=== PATIENT | male | born 1945 | race Caucasian/White ===

== ENCOUNTER 2020-10-20 11:11 | Emergency (ER) | payer BC, MEDICAID ==
[~2020-10-20] VITALS: Ht 177.8 cm; Wt 70.8 kg
--- NOTE | 2020-10-20 11:28 | NUR ---
TIFFANIE FONTAINE "Son called from Hotel they were staying at [facility].Given 2mg Narcan, admits on taking a tiny bit of fentanyl. On room air, breathing evenly and unlabored. Connected to the monitor and pulse ox. Kept comfortable, will continue to monitor accordingly.
[2020-10-20 11:45] LABS: BASOPHILS # (AUTO) 0.1 K/uL (0.0-0.2); BASOPHILS % (AUTO) 0.9 % (0.0-2.0); EOSINOPHILS % (AUTO) 2.8 % (0.0-6.0); HEMATOCRIT 43 % (39-51); HEMOGLOBIN 14.4 g/dL (13.5-17.5); LYMPHOCYTES # (AUTO) 2.2 K/uL (0.8-4.8); LYMPHOCYTES % (AUTO) 25.5 % (20.0-44.0); MEAN CORPUSCULAR HGB CONC 34 g/dl (31.0-36.0); MEAN CORPUSCULAR VOLUME 83 fL (80-96); MONOCYTES # (AUTO) 0.4 K/uL (0.1-1.30); MONOCYTES % (AUTO) 5.1 % (2.0-12.0); NEUTROPHILS # (AUTO) 5.6 K/uL (1.8-8.9); NEUTROPHILS % (AUTO) 65.7 % (43.0-81.0); PLATELET COUNT (AUTO) 533 K/uL (150-450); RED BLOOD CELL COUNT(AUTO) 5.12 MIL/uL (4.5-6.0); WHITE BLOOD COUNT (AUTO) 8.6 K/uL (4.3-11.0)
[2020-10-20 11:53] LABS: CALCIUM, SERUM 9.9 mg/dL (8.5-10.1); CARBON DIOXIDE 28 mmol/L (21-32); CHLORIDE 102 mmol/L (98-107); CREATININE 1.2 mg/dL (0.6-1.3); GLUCOSE 108 mg/dL (74-106); POTASSIUM 3.7 mmol/L (3.5-5.1); SODIUM SERUM 138 mmol/L (136-145); UREA NITROGEN, BLOOD 16 mg/dL (7-18)
[2020-10-20 12:12] LABS: ALANINE AMINOTRANSFERASE 13 U/L (12-78); ALBUMIN 3.5 g/dL (3.4-5.0); ALCOHOL, BLOOD < 3 mg/dL (0-0); ALKALINE PHOSPHATASE 73 U/L (46-116); ASPARTATE AMINOTRANSFERASE 34 U/L (15-37); BILIRUBIN,DIRECT 0.2 mg/dL (0.0-0.2); BILIRUBIN,TOTAL 0.8 mg/dL (0.2-1.0); TOTAL PROTEIN, SERUM 8.7 g/dL (6.4-8.2)
[2020-10-20 12:13] LABS: ACETAMINOPHEN < 2 ug/ml (10-30)
--- NOTE | 2020-10-20 12:34 | NUR ---
urine collected and sent to lab.
[2020-10-20 13:05] LABS: BILIRUBIN,URINE Negative (NEGATIVE); COLOR,URINE YELLOW (YELLOW); LEUKOCYTE ESTERASE ,URINE Negative (NEGATIVE); NITRITE, URINE Negative (NEGATIVE); PH,URINE 6.5 (5.0-8.0); PROTEIN,URINE 30 mg/dl (NEGATIVE); UGLUCOSE Negative (NEGATIVE); UROBILINOGEN,URINE 0.2 EU/dL (0.2)
[2020-10-20 13:11] LABS: BACTERIA,URINE Rare /HPF (None Seen); SQUAMOUS EPITHELIAL CELL,UR Few /HPF (None Seen); WBC,URINE NONE SEEN /HPF (0-3)
[2020-10-20] MEDS ORDERED: NALO4SPR NS (15:32)
--- NOTE | 2020-10-20 15:46 | NUR ---
called son for [employer] sewing [employer] and unable to leave a message due to mailbox full. Will try to call back in a bit.
--- NOTE | 2020-10-20 16:00 | NUR ---
son (hal) called [employer] for transportation to [place] pack[place] his dad going to [facility] 6. 5 mins ETA
--- NOTE | 2020-10-20 16:17 | NUR ---
Patient discharged to back to [place] [id number] where he stay with his son (hal) in stable condition. Written and verbal after care instructions given. Patient verbalizes understanding of instruction. Called hal and informed that his dad is on his way back and aware.
[2020-10-20 16:19] VITALS: BP 145/81
== END 2020-10-20 16:19 | disposition home or self-care (01) ==
LOC: ER 11:14
DX: S60.042A Contusion of left ring finger without damage to nail, initial encounter (principal); S49.81XA Other specified injuries of right shoulder and upper arm, initial encounter; T40.601A Poisoning by unspecified narcotics, accidental (unintentional), initial encounter; R31.29 Other microscopic hematuria; I10 Essential (primary) hypertension; Z86.73 Personal history of transient ischemic attack (TIA), and cerebral infarction without residual deficits; X58.XXXA Exposure to other specified factors, initial encounter; Y93.89 Activity, other specified; Y92.89 Other specified places as the place of occurrence of the external cause; Y99.8 Other external cause status
CPT/HCPCS: 36415; 70450-TC; 71045-TC; 73030-TC; 73140-TC; 80048-TC; 80076-TC; 81001; 84484-TC; 85025-TC; G0480